=== PATIENT | male | born 1980 | race Caucasian/White ===

== ENCOUNTER 2019-03-24 14:52 | Emergency (ER) | payer MEDICAID ==
[~2019-03-24] VITALS: Ht 167.6 cm; Wt 99.8 kg
[2019-03-24 15:33] VITALS: BP_SYST 153
[2019-03-24 17:51] VITALS: BP_SYST 153
== END 2019-03-24 17:51 | disposition home or self-care (01) ==
LOC: SED 14:52
DX: H66.92 Otitis media, unspecified, left ear (principal); R03.0 Elevated blood-pressure reading, without diagnosis of hypertension; Z88.0 Allergy status to penicillin
CPT/HCPCS: 99283

== ENCOUNTER 2019-03-27 20:57 | Emergency (ER) | payer MEDICAID ==
[~2019-03-27] VITALS: Ht 167.6 cm; Wt 99.8 kg
[2019-03-27 21:00] VITALS: BP_SYST 165
[2019-03-27] MEDS ORDERED: KETOROLAC TROMETHAMINE 30 MG VIAL IM ONE (23:00)
[2019-03-27] MEDS ORDERED: LEVOFLOXACIN 500 MG TABLET PO ONE (23:00)
[2019-03-28 00:01] VITALS: BP_SYST 148
== END 2019-03-28 00:01 | disposition home or self-care (01) ==
LOC: SED 20:57
DX: H66.92 Otitis media, unspecified, left ear (principal); Z88.0 Allergy status to penicillin
CPT/HCPCS: 70450; 96372; 99284; J1885

== ENCOUNTER 2019-08-16 04:58 | Emergency (ER) | payer MEDICAID ==
[~2019-08-16] VITALS: Ht 170.2 cm; Wt 98.4 kg
[2019-08-16 05:05] VITALS: BP_SYST 174
--- NOTE | 2019-08-16 05:09 | NUR ---
Patient to ER bed 2 to gown for evaluation. Side rails up. Report given to JOCELYN MARTINS.
--- NOTE | 2019-08-16 05:25 | NUR ---
Pt presents to ER with c/o laceration to left 3rd digit finger. 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 Pt states pain 4/10. Pt denies chills, fever, nausea, and vomiting. Pt states "I don't remember when I last had a tetanus shot." Will continue to monitor.
--- NOTE | 2019-08-16 05:36 | NUR ---
ER Dr. Rolle at bedside examining patient.
[2019-08-16] MEDS ORDERED: DIPH-TET-PERTUS Vaccine 0.5 ML VIAL (ADACEL) I.M. ONE (05:45)
--- NOTE | 2019-08-16 05:46 | NUR ---
MD Rolle at bedside cleaning wound.
[2019-08-16] MEDS ORDERED: BACITRACIN 1 GM OINT TP ONE (06:00)
--- NOTE | 2019-08-16 06:03 | NUR ---
Pt medicated per MD orders. Pt tolerated well.
--- NOTE | 2019-08-16 06:13 | NUR ---
Pt abrasion medicated with bacitracin per MD orders. Non adherent bandage applied with tape. Pt tolerated well. CMS intact, pulses present.
--- NOTE | 2019-08-16 06:24 | NUR ---
Patient given written and verbal discharge instructions and verbalizes understanding. ER MD Rolle discussed with patient the results and treatment provided. Patient in stable condition. ID arm band removed. Rx of bactrim given. Patient educated on pain management and to follow up with PMD. Pain Scale 0/10. Opportunity for questions provided and answered. Medication side effect fact sheet provided.
[2019-08-16 06:25] VITALS: BP_SYST 160
== END 2019-08-16 06:24 | disposition home or self-care (01) ==
LOC: SED 04:58
DX: S60.413A Abrasion of left middle finger, initial encounter (principal); Z88.0 Allergy status to penicillin; W22.8XXA Striking against or struck by other objects, initial encounter; Y93.89 Activity, other specified; Y92.89 Other specified places as the place of occurrence of the external cause; Y99.8 Other external cause status
CPT/HCPCS: 90715; 99283

== ENCOUNTER 2019-08-22 00:36 | Emergency (ER) | payer MEDICAID ==
--- NOTE | 2019-08-22 01:07 | NUR ---
called for triage no answer
== END 2019-08-22 01:07 | disposition left against medical advice (07) ==
LOC: SED 00:36
DX: N20.0 Calculus of kidney (principal); Z53.21 Procedure and treatment not carried out due to patient leaving prior to being seen by health care provider

== ENCOUNTER 2021-08-05 16:28 | Emergency (ER) | payer MEDICAID, SELFPAY ==
[~2021-08-05] VITALS: Ht 170.2 cm; Wt 91.6 kg
[2021-08-05 16:35] VITALS: BP_SYST 147
--- NOTE | 2021-08-05 16:40 | NUR ---
Patient triaged and placed in waiting room. VSS and patient appears in no acute distress at this time. Accompanied by SELF, awaiting available bed, and MD notified of need for MSE.
--- NOTE | 2021-08-05 17:01 | NUR ---
PT STATES THAT HE WAS RELEASED FROM LONG TERM 3 WEEKS AGO, SINCE RELEASE, PT HAS BEEN HAVING LEG AND FEET CRAMPING. PT STATES HE HAS BEEN TAKING POTASSIUM PILLS BUT STILL HAVING SPASMS AND CRAMPING
--- NOTE | 2021-08-05 18:01 | NUR ---
DR MARTINEZ OUT TO TRIAGE TO EVALUATE PT.
[2021-08-05] MEDS ORDERED: CYCL10TA24 PO (18:15)
--- NOTE | 2021-08-05 18:27 | NUR ---
Patient given written and verbal discharge instructions and verbalizes understanding. ER MD discussed with patient the results and treatment provided. Patient in stable condition. ID arm band removed. Rx of FLEXERIL given. Patient educated on pain management and to follow up with PMD. Pain Scale 0/10. Opportunity for questions provided and answered. Medication side effect fact sheet provided.
== END 2021-08-05 18:27 | disposition home or self-care (01) ==
LOC: SED 16:28
DX: M62.838 Other muscle spasm (principal); Z88.0 Allergy status to penicillin; Z79.899 Other long term (current) drug therapy
CPT/HCPCS: 99283

== ENCOUNTER 2022-10-04 03:42 | Emergency (ER) | payer MEDICAID ==
[~2022-10-04] VITALS: Ht 170.2 cm; Wt 95.3 kg
[~2022-10-04 03:42] MED LIST: CYCL10TA24 PO
[2022-10-04 03:53] VITALS: BP_SYST 178
--- NOTE | 2022-10-04 03:55 | NUR ---
DR. SUNSHINE AT BEDSIDE WITH PATIENT FOR MSE.
[2022-10-04] MEDS ORDERED: HYDR-3698 PO (04:14)
--- NOTE | 2022-10-04 04:15 | NUR ---
pt presents to ED c/o itchiness throughout body since leaving detention approx 7 months ago according to pt. pt also has lower jaw swelling, no other complaints nad, even unlabored respirations, skin in tact vss.
[2022-10-04 04:51] VITALS: BP_SYST 178
--- NOTE | 2022-10-04 04:51 | NUR ---
Patient given written and verbal discharge instructions and verbalizes understanding. ER MD discussed with patient the results and treatment provided. Patient in stable condition. ID arm band removed. Rx of hydroxyzine hcl given. Patient educated on puritis and to follow up with PMD. Opportunity for questions provided and answered. Medication side effect fact sheet provided.
== END 2022-10-04 04:51 | disposition home or self-care (01) ==
LOC: SED 03:42
DX: L29.9 Pruritus, unspecified (principal); I10 Essential (primary) hypertension; F12.90 Cannabis use, unspecified, uncomplicated; Z72.0 Tobacco use; Z88.0 Allergy status to penicillin; Z79.899 Other long term (current) drug therapy
CPT/HCPCS: 99283

== ENCOUNTER 2022-12-02 00:03 | Emergency (ER) | payer MEDICAID ==
[~2022-12-02] VITALS: Ht 175.3 cm; Wt 99.8 kg
[~2022-12-02 00:03] MED LIST changes: +HYDR-3698 PO
[2022-12-02 00:25] VITALS: BP_SYST 179
[2022-12-02] MEDS ORDERED: DIPHENHYDRAMINE HCL 50 MG CAPSULE PO ONE (01:15)
[2022-12-02] MEDS ORDERED: IBUPROFEN 600 MG TABLET PO ONE (01:15)
[2022-12-02] MEDS ORDERED: IBUP-1970 PO (02:28)
[2022-12-02] MEDS ORDERED: ACET-2634 PO (02:28)
[2022-12-02 02:38] VITALS: BP_SYST 135
== END 2022-12-02 02:38 | disposition home or self-care (01) ==
LOC: SED 00:03
DX: S43.401A Unspecified sprain of right shoulder joint, initial encounter (principal); L29.9 Pruritus, unspecified; Z88.0 Allergy status to penicillin; Z79.899 Other long term (current) drug therapy; W10.9XXA Fall (on) (from) unspecified stairs and steps, initial encounter; Y93.89 Activity, other specified; Y92.89 Other specified places as the place of occurrence of the external cause; Y99.8 Other external cause status
CPT/HCPCS: 99283; 73030; Q0163

== ENCOUNTER 2023-01-26 16:02 | Emergency (ER) | payer MEDICAID ==
[~2023-01-26 16:02] MED LIST changes: +ACET-2634 PO; +IBUP-1970 PO
--- NOTE | 2023-01-26 16:05 | NUR ---
CALLED FOR TRIAGE AND UNABLE TO LOCATE PT IN WAITING ROOM.
--- NOTE | 2023-01-26 16:17 | NUR ---
CALLED FOR TRIAGE AND UNABLE TO LOCATE PT.
--- NOTE | 2023-01-26 16:20 | NUR ---
CALLED FOR TRIAGE FOR THE THIRD TIME, UNABLE TO LOCATE PT. PT LWBS
== END 2023-01-26 16:20 | disposition left against medical advice (07) ==
LOC: SED 16:02
DX: M79.602 Pain in left arm (principal); Z53.21 Procedure and treatment not carried out due to patient leaving prior to being seen by health care provider

== ENCOUNTER 2023-02-10 13:19 | Emergency (ER) | payer MEDICAID ==
[~2023-02-10] VITALS: Ht 175.3 cm; Wt 99.8 kg
--- NOTE | 2023-02-10 13:38 | NUR ---
PATIENT BIB C/O RUQ ABD PAIN 02/20 WITH N/V X 2 DAYS. ALSO MENTIONS WIDESPREAD ITCHING WITH NO RELIEF FROM TOPICAL AND PO ALLERGY MEDICATIONS X MULTIPLE MONTHS, INTENSIFYING OVER PAST 2-3 WEEKS. MED HX OF GALLSTONES. DENIES ANY DAILY MEDICATIONS. ALLERGY TO PCN. BP 203/128 ON RIGHT ARM, 206/114 ON LEFT ARM. MADE AWARE.
[2023-02-10 13:45] VITALS: BP_SYST 203
--- NOTE | 2023-02-10 13:47 | NUR ---
DR DEL CID INFORMED OF HIGH BP, CHECKEWED TWICE, RT ARM-203/128, 81
[2023-02-10] MEDS ORDERED: KETOROLAC TROMETHAMINE 60 MG/2 ML VIAL IM ONE (14:00)
[2023-02-10 14:05] LABS: BASOPHILS # (AUTO) 0.1 K/uL (0.0-0.2); BASOPHILS % (AUTO) 0.9 % (0.0-2.0); EOSINOPHILS # (AUTO) 0.2 K/uL (0.0-0.4); EOSINOPHILS % (AUTO) 1.8 % (0.0-4.0); HEMATOCRIT 49.7 % (36-54); HEMOGLOBIN 17.1 g/dL (14.0-18.0); LYMPHOCYTES # (AUTO) 2.4 K/uL (1.0-5.5); LYMPHOCYTES % (AUTO) 25.4 % (20.5-51.5); MEAN CORPUSCULAR HEMOGLOBIN 31 pg (27-31); MEAN CORPUSCULAR HGB CONC 34 % (32-36); MEAN CORPUSCULAR VOLUME 90 fL (79.0-98.0); MONOCYTES # (AUTO) 0.8 K/uL (0.0-1.0); MONOCYTES % (AUTO) 8.1 % (1.7-9.3); NEUTROPHILS % (AUTO) 63.8 % (40.0-70.0); PLATELET COUNT (AUTO) 191 K/uL (130-430); RED BLOOD CELL COUNT(AUTO) 5.51 MIL/uL (4.2-6.2); RED CELL DISTRIBUTION WIDTH 13.1 % (9.0-15.0); WHITE BLOOD COUNT (AUTO) 9.4 K/uL (4.8-10.8)
[2023-02-10 14:19] LABS: CALCIUM 9.2 mg/dL (8.4-11.0); CREATININE 0.89 mg/dL (0.55-1.30)
[2023-02-10 14:23] LABS: ALBUMIN 3.8 g/dL (3.4-4.8); TOTAL BILIRUBIN 1.3 mg/dL (0.0-1.0)
--- NOTE | 2023-02-10 14:50 | NUR ---
PATIENT TO ULTRASOUND
--- NOTE | 2023-02-10 16:09 | NUR ---
URINE COLLECTED AND TAKEN TO LAB
[2023-02-10 16:18] LABS: BILIRUBIN,URINE NEGATIVE (NEGATIVE); BLOOD, URINE NEGATIVE (NEGATIVE); CLARITY/URINE CLEAR (CLEAR); COLOR,URINE YELLOW (YELLOW); GLUCOSE,URINE NEGATIVE (NEGATIVE); KETONES,URINE NEGATIVE (NEGATIVE); LEUKOCYTE ESTERASE ,URINE NEGATIVE (NEGATIVE); NITRITE, URINE NEGATIVE (NEGATIVE); PROTEIN URINE NEGATIVE (NEGATIVE)
[2023-02-10] MEDS ORDERED: HYDR-3917 PO (16:38)
[2023-02-10] MEDS ORDERED: IBUP-1971 PO (16:38)
--- NOTE | 2023-02-10 16:55 | NUR ---
Patient given written and verbal discharge instructions and verbalizes understanding. ER MD discussed with patient the results and treatment provided. Patient in stable condition. ID arm band removed. Rx of hydrocodone and iuprofen given. Patient educated on pain management and to follow up with PMD. Opportunity for questions provided and answered. Medication side effect fact sheet provided.
[2023-02-10 16:56] VITALS: BP_SYST 153
== END 2023-02-10 16:56 | disposition home or self-care (01) ==
LOC: SED 13:19
DX: K80.20 Calculus of gallbladder without cholecystitis without obstruction (principal); R10.11 Right upper quadrant pain; Z88.0 Allergy status to penicillin; Z79.899 Other long term (current) drug therapy
CPT/HCPCS: 99285; 76700; 80053; 83690; 85025; 36415; 96372; 81003; J1885

== ENCOUNTER 2023-05-26 15:48 | Emergency (ER) | payer MEDICAID ==
[~2023-05-26 15:48] MED LIST changes: +HYDR-3917 PO; +IBUP-1971 PO
== END 2023-05-26 16:45 | disposition left against medical advice (07) ==
LOC: SED 15:48
DX: K82.9 Disease of gallbladder, unspecified (principal); Z53.21 Procedure and treatment not carried out due to patient leaving prior to being seen by health care provider

== ENCOUNTER 2023-07-19 01:49 | Emergency (ER) | payer MEDICAID ==
[~2023-07-19] VITALS: Ht 175.3 cm; Wt 95.3 kg
[2023-07-19 02:03] VITALS: BP_SYST 164; PULSE 103; RESP 18; TEMP 98.3; O2SAT 97
[2023-07-19] MEDS ORDERED: cefTRIAXone 1 GM in LIDOCAINE 1%, 20 ML MDV 2.1 ML IM ONE (02:15)
[2023-07-19 02:30] VITALS: BP_SYST 134; PULSE 88; RESP 20; TEMP 98.3; O2SAT 97
[2023-07-19] MEDS ORDERED: CLIN-142 PO (02:31)
[2023-07-19] MEDS ORDERED: DIPHTH,PERTUSS(ACELL),TET VAC 0.5 ML VIAL (Tdap) I.M. ONE (02:45)
== END 2023-07-19 03:46 | disposition home or self-care (01) ==
LOC: SED 01:49
DX: S61.252A Open bite of right middle finger without damage to nail, initial encounter (principal); R03.0 Elevated blood-pressure reading, without diagnosis of hypertension; Z88.0 Allergy status to penicillin; Z79.899 Other long term (current) drug therapy; Y04.1XXA Assault by human bite, initial encounter; Y93.89 Activity, other specified; Y92.89 Other specified places as the place of occurrence of the external cause; Y99.8 Other external cause status
CPT/HCPCS: 99284; 90715; 96372; 90471; J0696; J2001

== ENCOUNTER 2023-10-26 21:30 | Emergency (ER) | payer MEDICAID ==
[~2023-10-26] VITALS: Ht 175.3 cm; Wt 99.8 kg
[~2023-10-26 21:30] MED LIST changes: +CLIN-142 PO
[2023-10-26 21:52] VITALS: PULSE 107; RESP 18; TEMP 97.9; O2SAT 100
[2023-10-27] MEDS ORDERED: CLAR-61 PO (00:16)
[2023-10-27 00:37] VITALS: BP_SYST 128; PULSE 106; RESP 18; TEMP 98.3; O2SAT 99
[2023-10-27] MEDS: cefTRIAXone 1 GM in LIDOCAINE 1%, 20 ML MDV 2.1 ML IM ONE (00:46)
== END 2023-10-27 00:30 | disposition home or self-care (01) ==
LOC: SED 21:30
DX: J02.9 Acute pharyngitis, unspecified (principal); R51.9 Headache, unspecified; R05.9 Cough, unspecified; Z88.0 Allergy status to penicillin; Z79.899 Other long term (current) drug therapy
CPT/HCPCS: 99283; 71045; 96372; J0696; J2001

== ENCOUNTER 2023-11-30 22:44 | Emergency (ER) | payer MEDICAID ==
[~2023-11-30] VITALS: Ht 172.7 cm; Wt 90.7 kg
[~2023-11-30 22:44] MED LIST changes: +CLAR-61 PO
[2023-11-30 23:13] VITALS: BP_SYST 161; PULSE 107; RESP 16; TEMP 98.2; O2SAT 100
[2023-11-30] MEDS ORDERED: LIDOINT TP (23:42)
[2023-11-30] MEDS ORDERED: PRED20TA PO (23:42)
== END 2023-11-30 23:55 | disposition home or self-care (01) ==
LOC: SED 22:44
DX: B02.9 Zoster without complications (principal); F15.10 Other stimulant abuse, uncomplicated; R73.9 Hyperglycemia, unspecified; R03.0 Elevated blood-pressure reading, without diagnosis of hypertension; Z88.0 Allergy status to penicillin
CPT/HCPCS: 82948; 99283